=== PATIENT | male | born 1965 | race African-American/Black ===

== ENCOUNTER 2020-07-02 01:47 | Emergency (ER) | payer BC ==
[2020-07-02 01:53] VITALS: BP 152/115; PULSE 74; TEMP 97.6; BMI 30.2
[2020-07-02] MEDS ORDERED: ALBUTEROL SO4 2.5/IPRATROPIUM 0.5 INH SOL 3 ML VIAL.NEB. NEB ONE ×2 (01:53→01:55)
== END 2020-07-02 02:05 | disposition home or self-care (01) ==
LOC: FER 01:47
PROC: 3E0F7GC Introduction of Other Therapeutic Substance into Respiratory Tract, Via Natural or Artificial Opening (ICD-10-PCS; principal; 2020-07-02)
DX: J45.909 Unspecified asthma, uncomplicated (principal)
CPT/HCPCS: 99284-25

== ENCOUNTER 2021-02-22 01:41 | Emergency (ER) | payer BC ==
[2021-02-22 01:59] VITALS: BP 119/80; PULSE 71; TEMP 97.8; BMI 30.1
[2021-02-22] MEDS ORDERED: ALBUTEROL SO4 2.5/IPRATROPIUM 0.5 INH SOL 3 ML VIAL.NEB. NEB ONE (02:09)
[2021-02-22] MEDS ORDERED: AMOXICILLIN 500 MG CAPSULE (FP) PO ONE (02:36)
[2021-02-22] MEDS ORDERED: predniSONE 20 MG TABLET (UD) PO ONE (02:37)
[2021-02-22] MEDS ORDERED: AMOXICILLIN 250 MG CAPSULE ONE (02:38)
[2021-02-22] MEDS ORDERED: predniSONE 20 MG TABLET (UD) ONE (02:39)
== END 2021-02-22 02:43 | disposition home or self-care (01) ==
LOC: FER 01:41
PROC: 3E0F7GC Introduction of Other Therapeutic Substance into Respiratory Tract, Via Natural or Artificial Opening (ICD-10-PCS; principal; 2021-02-22)
DX: J45.21 Mild intermittent asthma with (acute) exacerbation (principal)
CPT/HCPCS: 94640; 99283-25